=== PATIENT | male | born 1955 ===

== ENCOUNTER 2025-08-11 11:15 | Day surgery (SDC) | payer MEDICARE ==
--- NOTE | 2025-08-11 07:38 | HP ---
HISTORY: A 70-year-old with prolapsing hemorrhoids needs a followup screening colonoscopy as well. PAST MEDICAL HISTORY: He has history of gout, reflux, type 2 diabetes, hypertension, heart murmur. PAST SURGICAL HISTORY: He had cholecystectomy and testicular cyst removal in the past, had cataract surgery in the past. HOME MEDICATIONS: Hydrochlorothiazide, allopurinol, omeprazole, carvedilol, metformin. ALLERGIES: No known drug allergies. FAMILY HISTORY: Diabetes. Negative for colon cancer. SOCIAL HISTORY: Occasional alcohol use. Denies abuse. Denies smoking. REVIEW OF SYSTEMS: Twelve systems reviewed. No chest pain or palpitations. All other systems negative or noncontributory or as noted above and per preadmission questionnaire. PHYSICAL EXAMINATION: GENERAL: No acute distress. VITAL SIGNS: Height 6 feet 2 inches. BMI is 28.25. HEENT: Sclerae nonicteric. NECK: No JVD. CHEST: Clear. CARDIOVASCULAR: Regular rate and rhythm. ABDOMEN: Soft. EXTREMITIES: No edema. NEUROLOGIC: Alert and oriented, moving all extremities symmetrically. PSYCHIATRIC: Appropriate mood and affect. RECTAL: History of some prolapsed and internal hemorrhoids. IMPRESSION: Avoiding constipation, add fiber to his diet. He has some prolapsing internal hemorrhoids, interested in starting banding. Otherwise, he will also need screening colonoscopy. Risks were explained in detail including but not limited to bleeding; infection; risk of bowel injury or perforation possibly requiring other procedure; risk of missed diagnosis; incomplete exam possibly requiring barium enema, other studies, or procedures; general risk of anesthesia, sedation; risk of bowel prep; risk of progression of hemorrhoidal disease possibly requiring another procedure or referrals or treatments; minimal risk of pelvic sepsis. Recommend avoiding strain and avoid constipation, high-fiber diet or Metamucil-type products to titrate to soft bulky stools. Otherwise, we will proceed with outpatient colonoscopy under MAC anesthesia, possible internal hemorrhoid banding. Otherwise, continue medications for the gout, hypertension, diabetes, and reflux.
[2025-08-11] MEDS ORDERED: propofoL IV ONE ×3 (13:17→13:47)
[2025-08-11 14:23] VITALS: RESP 16; TEMP 97.6
[2025-08-11 14:34] VITALS: BP 149/84; PULSE 52; O2SAT 99
--- NOTE | 2025-08-13 12:13 | OP ---
SURGERY DATE/TIME: 08/11/2025 [id number] PREOPERATIVE DIAGNOSES: 1) Need for followup screening colonoscopy. 2) History of some prolapsing internal hemorrhoids despite conservative management in need of trial of hemorrhoid banding. POSTOPERATIVE DIAGNOSES: 1) Small patchy area of inflammation in sigmoid colon. 2) Diverticulosis. 3) Fair bowel prep. 4) Grade 3 internal and external hemorrhoids. 5) Withdrawal time approximately 10 minutes for colonoscopy. 6) ASA class 2. PROCEDURE: 1) Colonoscopy with hot biopsy patchy area of inflammation sigmoid colon. 2) Internal hemorrhoid banding x4 separate columns. SURGEON: Jeramy Foley MD CONTINUOUS DRIER HELPER: Yaakov Joe [id number] ESTIMATED BLOOD LOSS: Minimal. INDICATIONS: Consent obtained. DESCRIPTION OF PROCEDURE AND FINDINGS: Patient taken to the endoscopy room. MAC anesthesia induced. After official time-out and no disagreement with planned procedure, digital rectal exam revealed internal and external hemorrhoids. They seemed to be about grade 3 in nature. Videocolonoscope inserted and passed up through a tortuous sigmoid, descending, transverse, and ascending colon. With external pressure, scope was able to be passed around to the cecum. Appendiceal orifice and valve well visualized, photo documented. Patient had only a fair bowel with some liquidy, semi-solid stool throughout the colon. This was suction irrigated as clear as possible, slightly limiting the exam for small lesions. Scope was then carefully withdrawn over the next 10 minutes or so. He had some mild diverticulosis left colon. There were no signs of any large polyps, masses, or obstructing lesions. He did have a patchy area of inflammation or whether it was simple prep irritation in the sigmoid colon. Otherwise, he had some mild diverticulosis. There were no signs of any large polyps, masses, or obstructing lesions. Withdrawal time had been about 10 minutes. Scope was withdrawn. At this point, the half lutz retractor was carefully inserted and it was felt he warranted a trial of hemorrhoid banding. There was a left slightly posterior column. Suction head waiter/waitress was applied to the top edge of the hemorrhoid column, hopefully acquiring feeding arterial. Band was fired. Good tuft of tissue noted. Patient tolerated the procedure well. This was repeated in the right posterior and again in the right anterior position. It should be noted there was a separate fourth column that seemed to be more left anterolateral. Another band was placed to the top edge of this column as well. He had adequate hemostasis. Patient tolerated the procedure well. There were no immediate complications. There was no family to discuss findings with in the waiting area.
== END 2025-08-11 14:47 | disposition home or self-care (01) ==
LOC: SDC 11:15
PROVIDERS: ATTEND Surgery
DX: Z12.11 Encounter for screening for malignant neoplasm of colon (principal); E11.9 Type 2 diabetes mellitus without complications; I10 Essential (primary) hypertension; K64.8 Other hemorrhoids; K57.30 Diverticulosis of large intestine without perforation or abscess without bleeding; K64.4 Residual hemorrhoidal skin tags